=== PATIENT | male | born 1950 | race Caucasian/White ===

== ENCOUNTER → 2017-09-09 | Day surgery (SDC) | payer OTHER ==
[~2017-09-09] VITALS: Ht 175.3 cm; Wt 100.0 kg
[~2017-09-09] MED LIST: CHLORHEXIDINE GLUCONATE 2 % 1 PACK (2 CLOTHS) TOPICAL PRN; LACTATED RINGER'S 1000 ML IV PRN; LIDOCAINE HCL 1% PF 30 ML VIAL ONE; LIDOCAINE HCL 2% JELLY 5 ML SYRINGE TOPICAL ONE; METOPROLOL TARTRATE 25 MG TAB PO PRN; POVIDONE IODINE 5% (ANTISEPSIS KIT) 4 APPLICATIONS EACH NARE PRN; PROPARACAINE HCL 0.5% OPHT SOLN 15 ML BTL RIGHT EYE ONE; SODIUM CHLORID 0.9% 500 ML INJ 500 ML ONE; SODIUM CHLORID 0.9% 500 ML IV PRN; TEMA15CA PO; TOBRAMYCIN/DEXAMETHASONE OPTH OINT 3.5 GM TUBE ONE
[2017-09-09] MEDS: TROPICAMIDE 1% OPHT SOLN 15 ML BTL RIGHT EYE SCH ×4 (08:51→09:06)
[2017-09-09] MEDS: CYCLOPENTOLATE HCL 1% OPHT SOLN 2 ML BTL RIGHT EYE SCH ×4 (08:51→09:06)
[2017-09-09] MEDS: PHENYLEPHRINE HCL 10% OPTH SOLN 5 ML BTL RIGHT EYE SCH ×4 (08:51→09:06)
[2017-09-09] MEDS: FLURBIPROFEN 0.03% OPHT SOLN 2.5 ML BTL RIGHT EYE SCH ×4 (08:51→09:06)
[2017-09-09 10:54] VITALS: BP 127/85; PULSE 68; RESP 16; O2SAT 97
--- NOTE | 2017-09-09 11:04 | MP ---
cc: Chadd Appiah MD DATE OF OPERATION: 09/09/2017 [facility] # [id number] PREOPERATIVE DIAGNOSIS: Visually significant cataract, right eye. POSTOPERATIVE DIAGNOSIS: Visually significant cataract, right eye. OPERATION: Phacoemulsification with posterior chamber lens implantation, right eye. SURGEON: Chadd Appiah MD ANESTHESIA: Topical with MAC. COMPLICATIONS: None. PROCEDURE: After informed consent was obtained, the patient was brought into the operative suite and placed on appropriate monitors by the Anesthesia Service. The patient had been given dilating drops and topical lidocaine gel in the holding area. The patient's operative eye was then prepped and draped in the usual sterile fashion. A wire lid speculum was placed. Further 2% lidocaine was then dropped on the cornea prior to beginning the procedure. A paracentesis incision was made in the peripheral cornea with a 1 mm nova keratome. The anterior chamber was filled with viscoelastic. The anterior chamber was then entered through a stepped, clear corneal incision using a sharp 3 mm nova keratome. A circular tear capsulorrhexis was then made with a bent needle cystitome. Following hydrodissection of the lens nucleus with balance saline, phaco-emulsification of the nucleus was performed using a modified chopping technique. The remaining cortex was removed with irrigation/aspiration. The prior two procedures were both performed using the handpieces of the [employer] phaco unit. The capsular bag was then filled with viscoelastic. The intraocular lens was then injected into the capsular bag and positioned. The type of intraocular lens and its power can be found elsewhere in this chart. The remaining viscoelastic was then removed from the anterior chamber with the IA handpiece. The anterior chamber was reformed with balanced saline. The wound was then closed securely with stromal hydration. It was found to be watertight to an intraocular pressure of at least 30 mmHg by palpation. A small amount of balanced salt solution was then removed through the paracentesis site and the intraocular pressure at the end of the case was approximately 20 by palpation. All drapes were then removed. TobraDex ointment was then placed in the eye, which was closed beneath a semi-pressure patch dressing. The patient tolerated this procedure well and left the operating room awake and alert. The patient is to follow-up in my office in the morning. ADDENDUM: After the clear corneal incisions were sealed watertight, a 6 mm limbal relaxing incision was made with a 600 micron nova blade, centered around the nasal 180 degree meridian, MD OCTAVIA De La Cruz/TAMAR , 10:33 AM , 10:43 AM
== END | disposition home or self-care (01) ==
LOC: PHSDC 07:42 → EDSTATUS 11:00
PROVIDERS: ATTEND Optometrist Occupational Vision
DX: H25.11 Age-related nuclear cataract, right eye (principal)
CPT/HCPCS: 00142; 66984; J7040; V2632